=== PATIENT | male | born 1960 | race Two or more races ===

== ENCOUNTER 2022-09-10 22:13 | Emergency (ER) | payer MEDICAID, OTHER ==
[~2022-09-10] VITALS: Ht 170.2 cm; Wt 68.2 kg
[2022-09-10] MEDS ORDERED: RISP1TAB97 PO (22:27)
[2022-09-10] MEDS ORDERED: QUET25TA PO (22:27)
[2022-09-10] MEDS ORDERED: LEVE500T20 PO (22:27)
--- NOTE | 2022-09-10 22:42 | NUR ---
Dr. Francois evaluated pt at bedside.
--- NOTE | 2022-09-10 23:38 | NUR ---
patient taken to CT by beba Sanchez
[2022-09-10 23:45] LABS: HEMATOCRIT 38.9 % (36.7-47.1); MEAN CORPUSCULAR HEMOGLOBIN 30.2 uug (23.8-33.4); MEAN CORPUSCULAR VOLUME 89.5 fL (73.0-96.2); PLATELET COUNT (AUTO) 356 K/uL (152-348)
[2022-09-10 23:48] LABS: CREATININE 1.1 mg/dL (0.6-1.3); POTASSIUM 3.9 mmol/L (3.5-5.1)
--- NOTE | 2022-09-11 00:54 | NUR ---
Esthela ([facility]) called, was told to fax clinicals once CT is resulted. fax [phone]
--- NOTE | 2022-09-11 00:55 | NUR ---
[facility] [phone]
--- NOTE | 2022-09-11 01:58 | NUR ---
Patient has been accepted by Dr Lindsay Jimenez Pres
--- NOTE | 2022-09-11 05:10 | NUR ---
Called [facility] ambulance for transport. ETA 30-45 mins
--- NOTE | 2022-09-11 05:14 | NUR ---
Gave hand off report to Kenzie HUSSEIN at [facility] going to Room 630.
--- NOTE | 2022-09-11 06:21 | NUR ---
Patient was picked up by [facility] ambulance unit 345 with personal belongings. Patient in stable condition, no signs of distress. Vital signs stable. Patient remains postictal state.
--- NOTE | 2022-09-11 06:24 | NUR ---
Patient discharged to [facility] in stable condition. Picked up by [facility] ambulance unit 345 in stable condition. Written and verbal after care instructions given. Patient verbalizes understanding of instructions. Stressed follow up or return to ER for worsening s/s.
== END 2022-09-11 06:29 | disposition short-term general hospital (02) ==
LOC: ER 22:13
DX: G40.909 Epilepsy, unspecified, not intractable, without status epilepticus (principal); G30.9 Alzheimer's disease, unspecified; F02.80 Dementia in other diseases classified elsewhere, unspecified severity, without behavioral disturbance, psychotic disturbance, mood disturbance, and anxiety; Z20.822 Contact with and (suspected) exposure to COVID-19
CPT/HCPCS: 36415; 70450; 80299; 85025; 93005